=== PATIENT | male | born 1995 | race Two or more races ===

== ENCOUNTER 2022-10-30 06:10 | Day surgery (SDC) | payer OTHER ==
[~2022-10-30] VITALS: Ht 172.7 cm; Wt 105.2 kg
== END 2022-10-30 15:50 | disposition home or self-care (01) ==
LOC: CIR.AMB 06:10
PROVIDERS: ATTEND Urology
DX: Z30.2 Encounter for sterilization (principal); Z98.52 Vasectomy status; Z20.822 Contact with and (suspected) exposure to COVID-19

== ENCOUNTER 2024-12-14 12:33 | Outpatient (CLI) | payer OTHER | END 2024-12-14 12:40 | disposition home or self-care (01) | LOC: RAD 12:33 | PROVIDERS: ATTEND Urology | DX: Z01.818 Encounter for other preprocedural examination (principal) ==